=== PATIENT | male | born 1965 | race Caucasian/White ===

== ENCOUNTER 2018-01-31 17:24 | Emergency (ER) | payer OTHER ==
[~2018-01-31] VITALS: Ht 167.6 cm; Wt 77.1 kg
[2018-01-31] MEDS ORDERED: PROZAC (17:36)
[2018-01-31] MEDS ORDERED: ONDANSETRON 4 MG/2 ML VIAL IV ONE (17:45)
[2018-01-31] MEDS ORDERED: HYDROMORPHONE 2 MG/1 ML DISP.SYRIN ONE (17:45)
[2018-01-31] MEDS ORDERED: IV NORMAL SALINE 1000 ML BAG IV ONE (17:45)
[2018-01-31] MEDS ORDERED: HYDROMORPHONE 1 MG/1 ML DISP.SYRIN IV ONE (17:45)
[2018-01-31] MEDS ORDERED: ONDANSETRON 4 MG/2 ML VIAL ONE (17:45)
[2018-01-31 17:58] LABS: BASOPHILS # (AUTO) 0.1 K/uL (0.0-8.0); BASOPHILS % (AUTO) 0.4 % (0.0-2.0); HEMATOCRIT 43.2 % (36.7-47.1); HEMOGLOBIN 14.7 g/dL (12.5-16.3); LYMPHOCYTES # (AUTO) 1.8 K/uL (20.0-40.0); LYMPHOCYTES % (AUTO) 11.2 % (20.5-51.5); MEAN CORPUSCULAR HEMOGLOBIN 29.4 uug (23.8-33.4); MEAN CORPUSCULAR HGB CONC 34 g/dL (32.5-36.3); MEAN CORPUSCULAR VOLUME 86.3 fL (73.0-96.2); MONOCYTES # (AUTO) 0.5 K/uL (2.0-10.0); NEUTROPHILS # (AUTO) 13.7 K/uL (1.8-8.9); NEUTROPHILS % (AUTO) 85.4 % (38.5-71.5); PLATELET COUNT (AUTO) 340 K/uL (152-348); RED BLOOD CELL COUNT(AUTO) 5.01 MIL/uL (4.06-5.63); WHITE BLOOD COUNT (AUTO) 16.1 K/uL (3.6-10.2)
[2018-01-31 18:35] LABS: CREATININE 1.1 mg/dL (0.6-1.3); POTASSIUM 3.9 mmol/L (3.5-5.1)
[2018-01-31 18:41] LABS: BILIRUBIN,DIRECT 0.2 mg/dL (0.0-0.2); BILIRUBIN,TOTAL 0.9 mg/dL (0.2-1.0); TOTAL PROTEIN, SERUM 8.7 g/dL (6.4-8.2)
--- NOTE | 2018-01-31 18:46 | NUR ---
MSE COMPLETED, IV D/C'D INTACT, ACI GIVEN. PT GOT DRESSED AND AMBUATED W/O DIFF. RX X1 GIVEN
[2018-01-31 18:55] VITALS: BP 175/70
== END 2018-01-31 18:45 | disposition home or self-care (01) ==
LOC: ER 17:28
DX: G43.A0 Cyclical vomiting, in migraine, not intractable (principal)
CPT/HCPCS: 36415; 83690; 85025; A4663; J1170; J2405; J7030

== ENCOUNTER 2018-06-25 15:16 | Emergency (ER) | payer BC, OTHER ==
[~2018-06-25] VITALS: Ht 167.6 cm; Wt 77.1 kg
[~2018-06-25 15:16] MED LIST: PROZAC
--- NOTE | 2018-06-25 15:30 | NUR ---
PT A/OX4, PRESENTS TO THE ER C/O N/V. PT REPORTS AND CONTINUAL VOMITING SINCE AFTER LUNCH TODAY. PT HAS A HX OF CYCLIC VOMITING SYNDROME. SINCE ARRIVAL IN THE ER, PT HAS EXPERIENCED 3 EPISODES OF VOMITING, TOTALING APPROXIMATELY 70CC OF CLEAR YELLOW FLUID. PT IS MOANING AND THRASHING, REPORTING ABD PAIN. ABD NON-DISTENDED IN APPEARANCE, ABD SOUNDS HYPERACTIVE ON AUSCULTATION, ABD SOFT ON PALPATION. PT DENIES C/P, SOB, DIZZINESS, HEADACHE.
[2018-06-25] MEDS ORDERED: ONDANSETRON 4 MG/2 ML VIAL ONE ×2 (15:33→16:55)
[2018-06-25] MEDS ORDERED: PANTOPRAZOLE SODIUM 40 MG VIAL ONE (15:33)
--- NOTE | 2018-06-25 15:50 | NUR ---
WILLOW POLK AT BEDSIDE FOR MSE.
[2018-06-25] MEDS ORDERED: chlorproMAZINE 50 MG/2 ML AMPUL IV ONE (16:00)
[2018-06-25] MEDS ORDERED: IV NORMAL SALINE 1000 ML BAG IV ONE (16:00)
[2018-06-25] MEDS ORDERED: diphenhydrAMINE 50 MG/1 ML VIAL IV ONE (16:00)
[2018-06-25] MEDS ORDERED: PANTOPRAZOLE SODIUM 40 MG VIAL IV ONE (16:00)
[2018-06-25] MEDS ORDERED: ONDANSETRON 4 MG/2 ML VIAL IV ONE ×2 (16:00→17:00)
--- NOTE | 2018-06-25 16:02 | NUR ---
HOT POND OPERATOR AT BEDSIDE.
[2018-06-25] MEDS ORDERED: chlorproMAZINE 50 MG/2 ML AMPUL ONE (16:10)
[2018-06-25] MEDS ORDERED: diphenhydrAMINE 50 MG/1 ML VIAL ONE (16:10)
[2018-06-25 16:16] LABS: BASOPHILS # (AUTO) 0.1 K/uL (0.0-8.0); BASOPHILS % (AUTO) 0.5 % (0.0-2.0); EOSINOPHILS % (AUTO) 0.1 % (0.0-7.0); HEMATOCRIT 41.6 % (36.7-47.1); HEMOGLOBIN 14.1 g/dL (12.5-16.3); LYMPHOCYTES # (AUTO) 1.8 K/uL (20.0-40.0); LYMPHOCYTES % (AUTO) 12.7 % (20.5-51.5); MEAN CORPUSCULAR HEMOGLOBIN 29.1 uug (23.8-33.4); MEAN CORPUSCULAR HGB CONC 34 g/dL (32.5-36.3); MEAN CORPUSCULAR VOLUME 85.8 fL (73.0-96.2); MONOCYTES # (AUTO) 0.7 K/uL (2.0-10.0); MONOCYTES % (AUTO) 4.7 % (0.0-11.0); NEUTROPHILS # (AUTO) 11.6 K/uL (1.8-8.9); PLATELET COUNT (AUTO) 304 K/uL (152-348); RED BLOOD CELL COUNT(AUTO) 4.85 MIL/uL (4.06-5.63); WHITE BLOOD COUNT (AUTO) 14.1 K/uL (3.6-10.2)
[2018-06-25 16:24] LABS: CREATININE 1.2 mg/dL (0.6-1.3); POTASSIUM 3.9 mmol/L (3.5-5.1)
[2018-06-25 16:30] LABS: BILIRUBIN,DIRECT 0.1 mg/dL (0.0-0.2); BILIRUBIN,TOTAL 0.6 mg/dL (0.2-1.0); TOTAL PROTEIN, SERUM 8.1 g/dL (6.4-8.2)
--- NOTE | 2018-06-25 17:04 | NUR ---
Patient discharged to home in stable conditon. Written and verbal after care instructions given. Patient verbalizes understanding of instructions. ALL BELONGINGS W/ PT. PT SELF-AMBULATED W/O DIFFICULTY. 20G IV ACCESS IN LUE REMOVED PRIOR TO D/C - INNER CANNULA INTACT.
[2018-06-25 17:06] VITALS: BP 160/92
== END 2018-06-25 17:07 | disposition home or self-care (01) ==
LOC: ER 15:23
DX: G43.A0 Cyclical vomiting, in migraine, not intractable (principal); G89.4 Chronic pain syndrome; Z79.899 Other long term (current) drug therapy
CPT/HCPCS: 36415; 80048; 80076; 83690; 85025; 96374; 96375; 96376; 99283; C9113; J1200; J2405 ×2; J3230; A4663; J7030